=== PATIENT | male | born 1945 | race Caucasian/White ===

== ENCOUNTER → 2016-07-01 | Outpatient (CLI) | payer MEDICARE, BC | END | disposition home or self-care (01) | LOC: MW.CHUR 11:58 | PROVIDERS: ATTEND Urology | DX: N40.0 Benign prostatic hyperplasia without lower urinary tract symptoms (principal); R97.20 Elevated prostate specific antigen [PSA] | CPT/HCPCS: 36415; 84153 ==

== ENCOUNTER → 2016-07-14 | Outpatient (CLI) | payer MEDICARE, BC | LOC: MW.CHUR 08:00 | PROVIDERS: ATTEND Urology | DX: R97.20 Elevated prostate specific antigen [PSA] (principal); N52.9 Male erectile dysfunction, unspecified | CPT/HCPCS: G0463 ==

== ENCOUNTER 2017-03-28 07:22 | Day surgery (SDC) | payer MEDICARE, BC ==
[~2017-03-28 07:22] MED LIST: Lactated Ringers 1,000 ML IV SCH
--- NOTE | 2017-03-28 09:14 | PCM.PREANE ---
Preanesthetic Assessment - Anesthesia/Transfusion/Family Hx Anesthesia History: Prior Anesthesia Without Reaction Family History of Anesthesia Reaction: No Transfusion History: No Prior Transfusion(s) Intubation History: Unknown - Review of Systems General: No Symptoms Pulmonary: No Symptoms Cardiovascular: No Symptoms Gastrointestinal: Diarrhea Neurological: No Symptoms Other: Reports: None - Physical Assessment NPO Status Date: 03/27/17 NPO Status Time: 21:00 O2 Sat by Pulse Oximetry: 96 Respiratory Rate: 16 Vital Signs: Last Vital Signs Temp 36.4 C 03/28/17 07:44 Pulse 73 03/28/17 07:44 Resp 16 03/28/17 07:44 BP 152/95 H 03/28/17 07:44 Pulse Ox 96 03/28/17 07:44 Height: 1.8 m Weight: 91.172 kg ASA Class: 2 Mental Status: Alert & Oriented x3 Airway Class: Mallampati = 2 Dentition: Reports: Normal Dentition Thyro-Mental Finger Breadths: 2 Mouth Opening Finger Breadths: 3 ROM/Head Extension: Limited/Partial Lungs: Clear to Auscultation, Normal Respiratory Effort Cardiovascular: Regular Rate, Regular Rhythm - Allergies Allergies/Adverse Reactions: Allergies Allergy/AdvReac Type Severity Reaction Status Date / Time No Known Allergies Allergy Verified 02/25/14 13:44 - Blood Blood Available: No - Anesthesia Plan Pre-Op Medication Ordered: None - Acknowledgements Anesthesia Type Planned: MAC Pt an Appropriate Candidate for the Planned Anesthesia: Yes Alternatives and Risks of Anesthesia Discussed w Pt/Guardian: Yes Pt/Guardian Understands and Agrees with Anesthesia Plan: Yes PreAnesthesia Questionnaire HEENT History: Reports: Glaucoma Gastrointestinal History: Reports: Chronic Diarrhea Genitourinary History: Reports: BPH Musculoskeletal History: Reports: Arthritis, Other (See Below) Other Musculoskeletal History: degenerative joint disease Neurological History: Reports: None Endocrine/Metabolic History: Reports: None Oncologic (Cancer) History: Reports: Colon (colon resection 7 years ago) - Past Surgical History Head Surgeries/Procedures: Reports: None HEENT Surgical History: Reports: Cataract Surgery, Tonsillectomy GI Surgical History: Reports: Appendectomy, Colon, Colonoscopy (last one ;) Other GI Surgeries/Procedures: hx hemicolectomy Neurological Surgical History: Reports: C-Spine, Lumbar Spine Other Neurological Surgeries/Procedures: hx back surgery Musculoskeletal Surgical History: Reports: Knee Replacement (right), Other (See Below) Other Musculoskeletal Surgeries/Procedures:: hx surgery to left ankle & rt total knee replacement - SUBSTANCE USE Smoking Status *Q: Former Smoker Days Per Week of Alcohol Use: 1 Number of Drinks Per Day: 1 Total Drinks Per Week: 1 Recreational Drug Use History: No - HOME MEDS Home Medications: Home Meds Latanoprost [Xalatan 0.005% Ophth Soln] 1 drop EYEBOTH DAILY 03/23/17 [History] Loperamide HCl [Anti-Diarrheal] 2 tab PO BID 03/23/17 [History] - CURRENT (IN HOUSE) MEDS Current Meds: Current Medications Lactated Ringer's (Ringers, Lactated) 1,000 mls @ 125 mls/hr IV ASDIRECTED [facility] Last Admin: 03/28/17 07:46 Dose: 125 mls/hr
[2017-03-28] MEDS ORDERED: Propofol 200 MG/20 ML SDV ONE ×2 (10:18→10:34)
[2017-03-28] MEDS ORDERED: Lidocaine 2% 5 ML SDV ONE (10:18)
[2017-03-28] MEDS ORDERED: fentaNYL 100 MCG/2 ML SDV ONE (10:18)
[2017-03-28] MEDS ORDERED: Midazolam 1 MG/ML 2 ML SDV ONE (10:18)
--- NOTE | 2017-03-28 10:58 | PCM.OPNOTE ---
- General Post-Op/Procedure Note Date of Surgery/Procedure: 03/28/17 Operative Procedure(s): colonoscopy w bx Findings: see dict [id number] Pre Op Diagnosis: surveillence colonoscopy Post-Op Diagnosis: colon polyp Anesthesia Technique: Moderate Sedation Primary Surgeon: Sb Lino Pathology: 3 mm sessile polyp, bx, at distance 30cm when scope went in Complications: None Condition: Good
[2017-03-28 11:35] VITALS: BP 137/89
--- NOTE | 2017-03-28 12:06 | OR ---
SURGEON: Sb Lino MD DATE OF PROCEDURE: 03/28/2017 PREOPERATIVE DIAGNOSIS: Surveillance colonoscopy. POSTOPERATIVE DIAGNOSIS: Colon polyp. PROCEDURE PERFORMED: Colonoscopy with biopsy. FINDINGS: 1. The patient is easily sedated with WE[employer] and Diprivan. The patient is soundly snoring. 2. Bowel prep is average. Moderate amount of liquid stool. No bubbles. No semi-formed stool. 3. Colon is rather straight forward and anastomosis is arrived almost at the right groin as note the patient has colon cancer status post laparoscopic right hemicolectomy, so we do not expect to see the appendix or the ileocecal fold. We arrived to the anastomosis, which is in the right groin and which is just a little bit below the liver and then the mucosa examined. Upon scope pulling out, the patient has mild diverticulosis on the left colon. No signs or symptoms of diverticulitis, inflammation, stricture, ulceration, bleeding, none of those. The patient has a tiny polyp at distance 30 cm when the scope go in and was removed with biopsy forceps three times. Other than that, no mass, no growth, no inflammation, stricture, ulceration, bleeding, none of those. The patient does not have any hemorrhoid and the patient would benefit from a repeat colonoscopy in 3 years later or if clinically indicated otherwise or if the polyp pathology indicated otherwise. PROCEDURE IN DETAIL: The patient was taken to the endoscopy room. A time out was called, patient identified, and procedure identified. Diprivan was then administrated. Patient went from awake to sleep, hearing doctor talking or door closing is normal. Perineum inspection and digital examination were then performed. A well- lubricated colonoscope was gently inserted through the rectum, advanced past the rectosigmoid junction, the descending colon, splenic flexure, transverse colon, hepatic flexure, ascending colon, arrived to the cecum. Cecum was identified as dictated in the finding. Then the scope was carefully withdrawn while attention was paid to the mucosal surface for any abnormality. Air will be sucked out during the scope withdrawal. At the rectum, retroflexed to examine any rectal diseases, fistula or hemorrhoids. During mucosal examination, a 3mm sessile polyp was noted; picture taken and biopsy performed. Patient tolerated procedure well. There were no intraoperative complications, and Dr. Lino was present throughout the whole procedure. SANIA / JC /[id number] MTDD
== END 2017-03-28 11:30 | disposition home or self-care (01) ==
LOC: MW.SDS 07:22
PROVIDERS: ATTEND Surgery
DX: Z12.11 Encounter for screening for malignant neoplasm of colon (principal); M19.90 Unspecified osteoarthritis, unspecified site; N40.0 Benign prostatic hyperplasia without lower urinary tract symptoms; N52.9 Male erectile dysfunction, unspecified; M50.30 Other cervical disc degeneration, unspecified cervical region; K52.9 Noninfective gastroenteritis and colitis, unspecified; K63.5 Polyp of colon; D12.7 Benign neoplasm of rectosigmoid junction; Z85.038 Personal history of other malignant neoplasm of large intestine; Z79.899 Other long term (current) drug therapy; Z90.49 Acquired absence of other specified parts of digestive tract; Z90.89 Acquired absence of other organs; Z87.891 Personal history of nicotine dependence; Z98.890 Other specified postprocedural states; Z96.651 Presence of right artificial knee joint
CPT/HCPCS: 45380; 88305; J2250; J3010; J7120; J2704

== ENCOUNTER 2017-05-14 11:36 | Emergency (ER) | payer MEDICARE, BC ==
--- NOTE | 2017-05-14 12:06 | EDM.PDOC ---
ED HPI GENERAL MEDICAL PROBLEM - General Chief Complaint: Lower Extremity Injury/Pain Stated Complaint: FALL Time Seen by Provider: 05/14/17 11:37 Source of Information: Reports: Patient History Limitations: Reports: No Limitations - History of Present Illness INITIAL COMMENTS - FREE TEXT/NARRATIVE: HISTORY AND PHYSICAL: History of present illness: Patient is a 72-year-old male who presents to the emergency room with complaints of left hip pain post fall. He states he was walking on the ice when he slipped landing on his left hip and left elbow. He denies hitting his head or any loss of consciousness. Does not take any anticoagulants but does occasionally take an aspirin. Some soft tissue swelling noted to the left hip. He did walk in without difficulty. Denies any numbness or tingling to the lower extremities. Review of systems: As per history of present illness and below otherwise all systems reviewed and negative. Past medical history: As per history of present illness and as reviewed below otherwise noncontributory. Surgical history: As per history of present illness and as reviewed below otherwise noncontributory. Social history: No reported history of drug or alcohol abuse. Family history: As per history of present illness and as reviewed below otherwise noncontributory. Physical exam: HEENT: Atraumatic, normocephalic, pupils reactive, negative for conjunctival pallor or scleral icterus, mucous membranes moist, throat clear, neck supple, nontender, trachea midline. Lungs: Clear to auscultation, breath sounds equal bilaterally, chest nontender. Heart: S1S2, regular, negative for clicks, rubs, or JVD. Abdomen: Soft, nondistended, nontender. Negative for masses or hepatosplenomegaly. Negative for costovertebral tenderness. Pelvis: Stable nontender. Genitourinary: Deferred. Rectal: Deferred. C-Spine/Back: No pinpoint vertebral tenderness with palpation. Some muscular tenderness along the thoracic chest palp adjacent to mid-spine. Extremities: Moves all extremities per self. Tenderness to palpation of the left greater trochanteric area. Strong pedal pulses. Soft tissue swelling noted at area of discomfort. Skin intact, warm, dry. Left elbow has full range of motion and no tenderness with palpation. Neurovascular unremarkable. Neuro: Awake, alert, oriented. Cranial nerves II through XII unremarkable. Cerebellum unremarkable. Motor and sensory unremarkable throughout. Exam nonfocal. Due to the patient's intermittent aspirin use and age and will CT scan the patient's head and get an EKG. Had some thoracic pain with palpation (appears muscular), will get a CXR. Offered to x-ray the left elbow, patient declined. We 'll proceed with the x-ray of the left hip and pelvis along with the head CT. Head CT is normal with no acute findings. Chest x-ray shows no fracture, pneumonia or acute findings. X-ray of the hip and pelvis shows no convincing radiographic evidence of fracture or dislocation. I did talk with the patient about performing a CT of the pelvis/hip. He states he feels "fine right now". We did discuss that if he continues to have pain or worsening pain that he should follow-up with the orthopedic provider or return to the emergency room if unable to get in in a timely manner as a CT may be warranted. Offered the patient crutches to help with ambulation/nonweightbearing. Clines. Patient voices understanding of discharge instructions and agreeable to plan of care. He denies any further questions at this time. Diagnostics: CT head, xray pelvis/left hip Therapeutics: [] Impression: Hip injury Contusion Plan: 1. Rest, ice, elevate the affected extremity. These use Tylenol and/or ibuprofen as needed for pain management. 2. As we discussed please follow-up with orthopedics next week. Return to the ED as needed and as discussed. Definitive disposition and diagnosis as appropriate pending reevaluation and review of above. Onset: Today Duration: Minutes: Location: Reports: Pelvis Left Hip Pain Score (Numeric/FACES): 3 - Related Data Allergies Allergy/AdvReac Type Severity Reaction Status Date / Time No Known Allergies Allergy Verified 02/25/14 13:44 Home Meds: Home Meds Latanoprost [Xalatan 0.005% Ophth Soln] 1 drop EYEBOTH DAILY 03/23/17 [History] Loperamide HCl [Anti-Diarrheal] 2 tab PO BID 03/23/17 [History] Past Medical History HEENT History: Reports: Glaucoma Gastrointestinal History: Reports: Chronic Diarrhea Genitourinary History: Reports: BPH Musculoskeletal History: Reports: Arthritis, Other (See Below) Other Musculoskeletal History: degenerative joint disease Neurological History: Reports: None Endocrine/Metabolic History: Reports: None Oncologic (Cancer) History: Reports: Colon - Infectious Disease History Infectious Disease History: Reports: Measles - Past Surgical History Head Surgeries/Procedures: Reports: None HEENT Surgical History: Reports: Cataract Surgery, Tonsillectomy GI Surgical History: Reports: Appendectomy, Colon, Colonoscopy Other GI Surgeries/Procedures: hx hemicolectomy Neurological Surgical History: Reports: C-Spine, Lumbar Spine Other Neurological Surgeries/Procedures: hx back surgery Musculoskeletal Surgical History: Reports: Knee Replacement, Other (See Below) Other Musculoskeletal Surgeries/Procedures:: hx surgery to left ankle & rt total knee replacement Social & Family History - Family History Family Medical History: Noncontributory - Tobacco Use Smoking Status *Q: Never Smoker Years of Tobacco use: 30 Used Tobacco, but Quit: Yes Month Tobacco Last Used: quit smoking over 20 yrs ago Second Hand Smoke Exposure: No - Caffeine Use Caffeine Use: Reports: Coffee - Alcohol Use Days Per Week of Alcohol Use: 1 Number of Drinks Per Day: 1 Total Drinks Per Week: 1 - Recreational Drug Use Recreational Drug Use: No Drug Use in Last 12 Months: No Review of Systems - Review of Systems Review Of Systems: ROS reveals no pertinent complaints other than HPI. ED EXAM, GENERAL - Physical Exam Exam: See Below (See dictation) Course - Vital Signs Last Recorded V/S: Last Vital Signs Temp 96.4 F 05/14/17 11:40 Pulse 83 05/14/17 13:00 Resp 15 05/14/17 13:00 BP 101/60 05/14/17 13:00 Pulse Ox 94 L 05/14/17 13:00 - Orders/Labs/Meds Orders: Active Orders 24 hr Category Date Time Status EKG Documentation Completion [RC] STAT Care 05/14/17 12:52 Ordered Chest 1V Frontal [CR] Stat Exams 05/14/17 12:06 Taken Head wo Cont [CT] Stat Exams 05/14/17 11:59 Taken Hip Min 2V or 3V w Pelvis Lt [CR] Stat Exams 05/14/17 11:59 Taken Departure - Departure Time of Disposition: 13:35 Disposition: Home, Self-Care 01 Clinical Impression: Hip injury Qualifiers: Encounter type: initial encounter Laterality: left Qualified Code(s): S79.912A - Unspecified injury of left hip, initial encounter Contusion Qualifiers: Encounter type: initial encounter Contusion area: hip Laterality: left Qualified Code(s): S70.02XA - Contusion of left hip, initial encounter Fall Qualifiers: Encounter type: initial encounter Qualified Code(s): W19.XXXA - Unspecified fall, initial encounter - Discharge Information Instructions: Hip Pain Referrals: Mynor Lewis MD [Primary Care Provider] - Forms: ED Department Discharge Additional Instructions: My general discharge The following information is given to patients seen in the emergency department who are being discharged to home. This information is to outline your options for follow-up care. We provide all patients seen in our emergency department with a follow-up referral. The need for follow-up, as well as the timing and circumstances, are variable depending upon the specifics of your emergency department visit. If you don't have a primary care physician on staff, we will provide you with a referral. We always advise you to contact your personal physician following an emergency department visit to inform them of the circumstance of the visit and for follow-up with them and/or the need for any referrals to a consulting specialist. The emergency department will also refer you to a specialist when appropriate. This referral assures that you have the opportunity for follow-up care with a specialist. All of these measure are taken in an effort to provide you with optimal care, which includes your follow-up. Under all circumstances we always encourage you to contact your private physician who remains a resource for coordinating your care. When calling for follow-up care, please make the office aware that this follow-up is from your recent emergency room visit. If for any reason you are refused follow-up, please contact the [facility] at and asked to speak to the emergency department charge nurse. [facility] Professional [facility] [address] [place] [address], [address] [place] [address] 1. Rest, ice, elevate the affected extremity. These use Tylenol and/or ibuprofen as needed for pain management. 2. As we discussed please follow-up with orthopedics next week. If you continued to have pain, a CT of the hip/pelvis may be warranted Please Return to the ED as needed and as discussed. - My Orders Last 24 Hours: My Active Orders 05/14/17 11:59 Head wo Cont [CT] Stat Hip Min 2V or 3V w Pelvis Lt [CR] Stat 05/14/17 12:06 Chest 1V Frontal [CR] Stat 05/14/17 12:52 EKG Documentation Completion [RC] STAT - Assessment/Plan Last 24 Hours: My Active Orders 05/14/17 11:59 Head wo Cont [CT] Stat Hip Min 2V or 3V w Pelvis Lt [CR] Stat 05/14/17 12:06 Chest 1V Frontal [CR] Stat 05/14/17 12:52 EKG Documentation Completion [RC] STAT
[2017-05-14 13:00] VITALS: BP 101/60
--- NOTE | 2017-05-15 16:09 | CT ---
EXAM DATE: 05/14/17 PATIENT'S AGE: 72 Patient: BRANDON GONZALEZ Facility: [place], [place] Site . Site : 1945 Study: CT Head WO CONT [id number]/28/2018 12:22:55 PM Ordering Physician: Doctor Rivera Final Report: INDICATION: Fell on ice, hit head. TECHNIQUE: Noncontrast axial scans from skull base to vertex with multiplanar reconstructions. FINDINGS: There is no noncontrast CT evidence of acute intracranial hemorrhage, midline shift, nor mass effect. No extra-axial fluid collection is identified. Mild ventricular enlargement, appearing appropriate to the mild degree 8 of cortical cerebral atrophy. There is no skull fracture. No acute calvarial abnormality identified. The visualized paranasal sinuses are clear. Unremarkable orbits. IMPRESSION: No acute intracranial abnormality identified. 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 Please note that all CT scans at this facility use dose modulation, iterative reconstruction, and/or weight-based dosing when appropriate to reduce radiation dose to as low as reasonably achievable. Dictated by Emre Head MD @ May 14 2017 12:37PM (Electronic Signature) Report Signed by Proxy. [facility] CORNELL MEDICAL CENTERBrandon
--- NOTE | 2017-05-15 16:10 | CR ---
EXAM DATE: 05/14/17 PATIENT'S AGE: 72 Patient: BRANDON GONZALEZ Facility: [place], [place] Site . Site : 1945 Study: XRay Chest [id number]/2018 12:33:43 PM Ordering Physician: Doctor Rivera Final Report: INDICATION: Pain, short of breath. TECHNIQUE: A single upright PA view. FINDINGS: Heart size normal. Tortuous thoracic aorta. There is a faint nodule overlying the right mid chest, this could represent a nipple shadow, but pulmonary nodule is not excluded. This measures just over 1 cm in maximum dimension. Otherwise lungs are clear. Consider nonemergent noncontrast CT examination of chest for further evaluation. Dictated by Emre Head MD @ May 14 2017 12:53PM (Electronic Signature) Report Signed by Proxy. FRIEDA
--- NOTE | 2017-05-15 16:11 | CR ---
EXAM DATE: 05/14/17 PATIENT'S AGE: 72 Patient: BRANDON GONZALEZ Facility: [place], [place] Site . Site : 1945 Study: XRay Hip Left [id number]/28/2018 12:34:16 PM Ordering Physician: Doctor Rivera Final Report: INDICATION: Fall. TECHNIQUE: Three views. FINDINGS: There is no convincing radiographic evidence of fracture/dislocation. If signs/ symptoms continue and if clinically indicated, consider CT examination. Moderate degenerative narrowing of the right hip joint with associated osteophytes is noted on the AP pelvis view. Dictated by Emre Head MD @ May 14 2017 12:50PM (Electronic Signature) Report Signed by Proxy. FRIEDA
== END 2017-05-14 13:43 | disposition home or self-care (01) ==
LOC: MW.ED 11:36
DX: S70.02XA Contusion of left hip, initial encounter (principal); Z79.899 Other long term (current) drug therapy; Z87.891 Personal history of nicotine dependence; W01.0XXA Fall on same level from slipping, tripping and stumbling without subsequent striking against object, initial encounter
CPT/HCPCS: 70450; 70450-26; 71045; 71045-26; 73502-26-LT; 73502-LT; 93005; 99283

== ENCOUNTER 2017-05-23 08:46 | Observation (INO) | payer MEDICARE, BC ==
[2017-05-23] MEDS ORDERED: Sodium Chloride 0.9% 10 ML Syringe FLUSH PRN (09:05)
[2017-05-23] MEDS ORDERED: Sodium Chloride 0.9% 2.5 ML Syringe FLUSH PRN ×2 (09:05→11:31)
--- NOTE | 2017-05-23 09:46 | US ---
ULTRASOUND EXAMINATION OF the left lower extremity WITH DOPPLER HISTORY: Pain FINDINGS: Examination of the left leg was performed from the groin to the calf region. All visualized segments including common femoral, proximal greater saphenous, superficial femoral, popliteal and calf veins appear patent with good compressibility and augmentation. There is no evidence of a deep vein thromb osis. Mild subcutaneous edema noted within the calf. IMPRESSION: No evidence of a DVT.
--- NOTE | 2017-05-23 09:47 | CR ---
EXAMINATION: Left femur HISTORY: Fall COMPARISON: None TECHNIQUE: 2 views FINDINGS/IMPRESSION: There is no acute osseous abnormality, dislocation, or fracture. Bone mineraliza tion and Hip joint space appears preserved. Mild prepatellar soft tissue thickening without an underl patrica joint effusion.
--- NOTE | 2017-05-23 10:33 | EDM.PDOC ---
ED HPI GENERAL MEDICAL PROBLEM - General Chief Complaint: Lower Extremity Injury/Pain Stated Complaint: LEFT HIP PAIN Time Seen by Provider: 05/23/17 08:50 Source of Information: Reports: Family History Limitations: Reports: No Limitations - History of Present Illness INITIAL COMMENTS - FREE TEXT/NARRATIVE: History of present illness: []Patient fell on the ice a week ago and landed on his left posterior hip. He was seen in the ER and x-rays were initially negative. Followed up and had a CT of his hip which is also negative for fracture but showed severe DJD of the hip. Patient continues to have hip and thigh pain on his left with pain, bruising and swelling of his left lower extremity. Denies any other pain, fevers , shortness of breath Review of systems: As per history of present illness and below otherwise all systems reviewed and negative. Past medical history: As per history of present illness and as reviewed below otherwise noncontributory. Surgical history: As per history of present illness and as reviewed below otherwise noncontributory. Social history: No reported history of drug or alcohol abuse. Family history: As per history of present illness and as reviewed below otherwise noncontributory. Physical exam: General: Well developed, well nourished in NAD HEENT: Atraumatic, normocephalic, pupils reactive, negative for conjunctival pallor or scleral icterus, mucous membranes moist, throat clear, neck supple, nontender, trachea midline. Lungs: Clear to auscultation, breath sounds equal bilaterally, chest nontender. Heart: S1S2, regular, negative for clicks, rubs, or JVD. Abdomen: Soft, nondistended, nontender. Negative for masses or hepatosplenomegaly. Negative for costovertebral tenderness. Pelvis: Stable nontender. Genitourinary: Deferred. Rectal: Deferred. Extremities: Left lower extremity visibly larger than the right with pitting edema and ecchymosis from the medial thigh to the medial ankle he does have tenderness to palpation throughout his lower extremity is not tense and no pain with passive extension or flexion, negative for cords or calf pain. Neurovascular unremarkable. Neuro: Awake, alert, oriented. Cranial nerves II through XII unremarkable. Cerebellum unremarkable. Motor and sensory unremarkable throughout. Exam nonfocal. Diagnostics: []Ultrasound negative for DVT, femur x-ray negative for fracture reviewed x- rays and CT of the left hip which are negative for fracture. H&H is 7.9/25. Patient does have a history of thalassemia and states he is always anemic. Patient's last H&H on March 2016 was 12.2/40.7 Therapeutics: []Patient declined pain meds and blood has been ordered. Impression: []Left lower extremity contusion with edema Plan: []Hospitalist consulted at 10:25 will admit for observation and for a blood transfusion. Definitive disposition and diagnosis as appropriate pending reevaluation and review of above. Left leg Pain Score (Numeric/FACES): 2 - Related Data Allergies Allergy/AdvReac Type Severity Reaction Status Date / Time No Known Allergies Allergy Verified 05/23/17 09:02 Home Meds: Home Meds Latanoprost [Xalatan 0.005% Ophth Soln] 1 drop EYEBOTH DAILY 03/23/17 [History] Loperamide HCl [Anti-Diarrheal] 2 tab PO BID 03/23/17 [History] Past Medical History HEENT History: Reports: Glaucoma Gastrointestinal History: Reports: Chronic Diarrhea Genitourinary History: Reports: BPH Musculoskeletal History: Reports: Arthritis, Other (See Below) Other Musculoskeletal History: degenerative joint disease Neurological History: Reports: None Endocrine/Metabolic History: Reports: None Oncologic (Cancer) History: Reports: Colon - Infectious Disease History Infectious Disease History: Reports: Measles - Past Surgical History Head Surgeries/Procedures: Reports: None HEENT Surgical History: Reports: Cataract Surgery, Tonsillectomy GI Surgical History: Reports: Appendectomy, Cholecystectomy, Colon, Colonoscopy Other GI Surgeries/Procedures: hx hemicolectomy Neurological Surgical History: Reports: C-Spine, Lumbar Spine Other Neurological Surgeries/Procedures: hx back surgery Musculoskeletal Surgical History: Reports: Knee Replacement, Other (See Below) Other Musculoskeletal Surgeries/Procedures:: hx surgery to left ankle & rt total knee replacement Social & Family History - Family History Family Medical History: Noncontributory - Tobacco Use Smoking Status *Q: Former Smoker Years of Tobacco use: 30 Used Tobacco, but Quit: Yes Month Tobacco Last Used: 20 years ago Second Hand Smoke Exposure: No - Caffeine Use Caffeine Use: Reports: None - Alcohol Use Days Per Week of Alcohol Use: 1 Number of Drinks Per Day: 1 Total Drinks Per Week: 1 - Recreational Drug Use Recreational Drug Use: No Drug Use in Last 12 Months: No Review of Systems - Review of Systems Review Of Systems: See Below (See history of present illness) ED EXAM, GENERAL - Physical Exam Exam: See Below (See history of present illness) Course - Vital Signs Last Recorded V/S: Last Vital Signs Temp 98.5 F 05/23/17 11:31 Pulse 85 05/23/17 11:31 Resp 18 05/23/17 11:31 BP 97/69 05/23/17 11:31 Pulse Ox 98 05/23/17 11:31 - Orders/Labs/Meds Orders: Active Orders 24 hr Category Date Time Status Patient Status [ADT] Stat ADT 05/23/17 11:07 Active Transfuse Red Blood Cells [COMM] Routine Oth 05/23/17 11:04 Ordered Medication Orders Acetaminophen (Tylenol) 650 mg PO Q4H PRN PRN Reason: Pain Loperamide HCl (Imodium) 2 mg PO BID NAVI Ondansetron HCl (Zofran) 4 mg IVPUSH Q4H PRN PRN Reason: Nausea Pantoprazole Sodium (Protonix Iv) 40 mg IVPUSH Q12H NAVI Xalatan Opthalmic 0 each EYEBOTH DAILY NAVI Sodium Chloride (Saline Flush) 2.5 ml FLUSH ASDIRECTED PRN PRN Reason: Keep Vein Open Tramadol HCl (Ultram) 50 mg PO Q4H PRN PRN Reason: Pain Labs: Laboratory Tests 05/23/17 05/23/17 05/23/17 Range/Units 09:58 09:58 09:58 WBC 9.74 (4.0-11.0) K/uL RBC 4.01 L (4.50-5.90) M/uL Hgb 7.9 L (13.0-17.0) g/dL Hct 25.3 L (38.0-50.0) % MCV 63.1 L (80.0-98.0) fL MCH 19.7 L (27.0-32.0) pg MCHC 31.2 (31.0-37.0) g/dL RDW Std Deviation 35.9 (28.0-62.0) fl RDW Coeff of [place] 17 H (11.0-15.0) % Plt Count 380 (150-400) K/uL MPV 9.60 (7.40-12.00) fL Neut % (Auto) 71.4 (48.0-80.0) % Lymph % (Auto) 17.1 (16.0-40.0) % [place] % (Auto) 8.7 (0.0-15.0) % Eos % (Auto) 2.6 (0.0-7.0) % Baso % (Auto) 0.2 (0.0-1.5) % Neut # (Auto) 7.0 H (1.4-5.7) K/uL Lymph # (Auto) 1.7 (0.6-2.4) K/uL [place] # (Auto) 0.9 H (0.0-0.8) K/uL Eos # (Auto) 0.3 (0.0-0.7) K/uL Baso # (Auto) 0.0 (0.0-0.1) K/uL Nucleated RBC % 0.0 /100WBC Nucleated RBCs # 0 K/uL INR 1.03 APTT 27.3 (18.6-31.3) SEC Sodium 137 (136-146) mmol/L Potassium 4.2 (3.5-5.1) mmol/L Chloride 104 (98-110) mmol/L Carbon Dioxide 29 (21-31) mmol/L BUN 17 (6.0-23.0) mg/dL Creatinine 0.9 (0.6-1.5) mg/dL Est Cr Clr Drug Dosing 76.90 mL/min Estimated GFR (MDRD) > 60.0 ml/min Glucose 101 (60-110) mg/dL Calcium 8.5 L (8.8-10.8) mg/dL Total Bilirubin 2.0 H (0.1-1.5) mg/dL AST 23 (5-40) IU/L ALT 13 (8-54) IU/L Alkaline Phosphatase 69 (40-150) Total Protein 6.3 (6.0-8.0) g/dL Albumin 3.5 (3.4-4.8) g/dL Globulin 2.8 (2.0-3.5) g/dL Albumin/Globulin Ratio 1.3 (1.3-2.8) Meds: Medications Generic Name Dose Route Start Last Admin Trade Name Freq PRN Reason Stop Dose Admin Acetaminophen 650 mg 05/23/17 11:31 Tylenol PO Q4H PRN Pain Loperamide HCl 2 mg 05/23/17 21:00 Imodium PO BID NAVI Ondansetron HCl 4 mg 05/23/17 11:31 Zofran IVPUSH Q4H PRN Nausea Pantoprazole Sodium 40 mg 05/23/17 11:45 Protonix Iv IVPUSH Q12H NAVI Xalatan Opthalmic 0 each 05/24/17 09:00 EYEBOTH DAILY NAVI Sodium Chloride 2.5 ml 05/23/17 11:31 Saline Flush FLUSH ASDIRECTED PRN Keep Vein Open Tramadol HCl 50 mg 05/23/17 11:39 Ultram PO Q4H PRN Pain Discontinued Medications Generic Name Dose Route Start Last Admin Trade Name Freq PRN Reason Stop Dose Admin Sodium Chloride 10 ml 05/23/17 09:05 Saline Flush FLUSH ASDIRECTED PRN Keep Vein Open Sodium Chloride 2.5 ml 05/23/17 09:05 Saline Flush FLUSH ASDIRECTED PRN Keep Vein Open Departure - Departure Time of Disposition: 12:44 Disposition: Refer to Observation Condition: Good Clinical Impression: Anemia - Discharge Information - My Orders Last 24 Hours: My Active Orders 05/23/17 11:04 Transfuse Red Blood Cells [COMM] Routine 05/23/17 11:07 Patient Status [ADT] Stat - Assessment/Plan Last 24 Hours: My Active Orders 05/23/17 11:04 Transfuse Red Blood Cells [COMM] Routine 05/23/17 11:07 Patient Status [ADT] Stat
[2017-05-23 10:34] LABS: CHLORIDE,CL 104 mmol/L (98-110); SODIUM,NA 137 mmol/L (136-146)
[2017-05-23] MEDS ORDERED: Ondansetron 4 MG/2 ML SDV IVPUSH PRN (11:31)
[2017-05-23] MEDS ORDERED: Acetaminophen 325 MG Tab PO PRN (11:31)
--- NOTE | 2017-05-23 11:31 | PCM.HP ---
H&P History of Present Illness - General Date of Service: 05/23/17 Admit Problem/Dx: Anemia, L leg hematoma Source of Information: Patient History Limitations: Reports: No Limitations - History of Present Illness Initial Comments - Free Text/Narative: THis 72 year old male with pmh of beta thalassemia minor and colon ca with colectomy 7-8 years ago presents to the ED after he fell 05/14. He is reporting continued L hip/leg pain with bruising to his L hip and extending distally to foot. They do report the swelling has improved. But he is worried about the pain. Xrays from initial visit to ED were negative for fractures as well as a CT of hip. He denies shortness of breath, chest pain, fatigue or bleeding else where. He reports taking Ibuprofen 2-3 times a day for pain. He denies anticoagulation therapy. He is able to ambulate on his leg, with some pain. He denies parathesias to leg and again reports the swelling and circumference of leg have improved. He denies black or bloody BMS, no hematemesis or abdominal pain. In the ED anemia, hg 7.9 noted. BMP WNL. INR 1.03. Doppler of L leg negative for DVT and Femur xray neg again for acute fracture. He will be admitted for pain control and RBC transfusion due to anemia. Left leg Pain Score (Numeric/FACES): 2 - Related Data Allergies/Adverse Reactions: Allergies Allergy/AdvReac Type Severity Reaction Status Date / Time No Known Allergies Allergy Verified 05/23/17 09:02 Home Medications: Home Meds Latanoprost [Xalatan 0.005% Ophth Soln] 1 drop EYEBOTH DAILY 03/23/17 [History] Loperamide HCl [Anti-Diarrheal] 2 tab PO BID 03/23/17 [History] Past Medical History HEENT History: Reports: Glaucoma Cardiovascular History: Reports: Hypertension (some hx of but not treated currenty). Denies: Afib, Blood Clots/VTE/DVT, Heart Failure, High Cholesterol, [place] Respiratory History: Reports: None. Denies: Asthma, COPD Gastrointestinal History: Reports: Chronic Diarrhea (post colectomy). Denies: GERD Genitourinary History: Reports: BPH. Denies: Chronic Renal Insuffiency Musculoskeletal History: Reports: Arthritis, Other (See Below) Other Musculoskeletal History: degenerative joint disease Neurological History: Reports: None. Denies: CVA, TIA Endocrine/Metabolic History: Reports: None. Denies: Diabetes, Type II, Hypothyroidism Hematologic History: Reports: Anemia (beta thalassemia minor) Oncologic (Cancer) History: Reports: Colon - Infectious Disease History Infectious Disease History: Reports: Measles - Past Surgical History Head Surgeries/Procedures: Reports: None HEENT Surgical History: Reports: Cataract Surgery, Tonsillectomy GI Surgical History: Reports: Appendectomy, Cholecystectomy, Colon, Colonoscopy Other GI Surgeries/Procedures: hx hemicolectomy Neurological Surgical History: Reports: C-Spine, Lumbar Spine Other Neurological Surgeries/Procedures: hx back surgery Musculoskeletal Surgical History: Reports: Knee Replacement, Other (See Below) Other Musculoskeletal Surgeries/Procedures:: hx surgery to left ankle & rt total knee replacement Social & Family History - Family History Family Medical History: Noncontributory - Tobacco Use Smoking Status *Q: Former Smoker Years of Tobacco use: 30 Used Tobacco, but Quit: Yes Month Tobacco Last Used: 20 years ago Second Hand Smoke Exposure: No - Caffeine Use Caffeine Use: Reports: None - Alcohol Use Alcohol Use History: No Days Per Week of Alcohol Use: 1 Number of Drinks Per Day: 1 Total Drinks Per Week: 1 - Recreational Drug Use Recreational Drug Use: No Drug Use in Last 12 Months: No - Living Situation & Occupation Living situation: Reports: Occupation: Retired H&P Review of Systems - Review of Systems: Review Of Systems: See Below General: Reports: No Symptoms. Denies: Fever, Chills, Malaise, Weakness, Fatigue HEENT: Reports: No Symptoms. Denies: Headaches, Sinus Congestion, Sore Throat Pulmonary: Reports: No Symptoms. Denies: Shortness of Breath, Cough, Sputum Cardiovascular: Reports: Edema (L leg). Denies: Chest Pain, Palpitations, Dyspnea on Exertion, Lightheadedness, Syncope Gastrointestinal: Reports: No Symptoms. Denies: Abdominal Pain, Black Stool, Bloody Stool, Nausea, Vomiting Genitourinary: Reports: No Symptoms. Denies: Dysuria, Frequency, Burning Musculoskeletal: Reports: No Symptoms Skin: Reports: No Symptoms Psychiatric: Reports: No Symptoms. Denies: Confusion Neurological: Reports: No Symptoms. Denies: Confusion Immunologic: Reports: No Symptoms Exam - Exam Exam: See Below - Vital Signs Vital Signs: Last Vital Signs Temp 98.1 F 02/06/18 09:13 Pulse 72 05/23/17 10:26 Resp 16 05/23/17 10:26 BP 128/82 05/23/17 10:26 Pulse Ox 96 05/23/17 10:26 Weight: 99 kg - Exam General: Alert, Oriented, Cooperative HEENT: PERRLA, Hearing Intact, Mucosa Moist & [place], Nares Patent, Normal Nasal Septum, Posterior Pharynx Clear, Conjunctiva Clear, EOMI, EACs Clear, TMs Clear Neck: Supple, Trachea Midline, 2 Lungs: Clear to Auscultation, Normal Respiratory Effort Cardiovascular: Regular Rate, Regular Rhythm GI/Abdominal Exam: Normal Bowel Sounds, Soft, Non-Tender, No Organomegaly, No Distention, No Abnormal Bruit, No Mass, Pelvis Stable Back Exam: Normal Inspection, Full Range of Motion Extremities: Normal Range of Motion, Pedal Edema (+1 pitting edema to foot, +2- 3 edema entire leg.) Peripheral Pulses: 2+: Posterior Tibial (L), Posterior Tibial (R), Dorsalis Pedis (L), Dorsalis Pedis (R) Skin: Ecchymosis (bruising noted from low back, buttock and L hip extending down to L foot, all phases of healing. Patient and report edema is better and bruising has improved as well. ) Neurological: Normal Gait Neuro Extensive - Mental Status: Alert, Oriented x3, Normal Mood/Affect, Normal Cognition Neuro Extensive - Motor, Sensory, Reflexes: CN II-XII Intact, Normal Gait Psychiatric: Alert, Normal Affect, Normal Mood - Patient Data Result Diagrams: 05/23/17 09:58 05/23/17 09:58 *Q Meaningful Use (ADM) - VTE *Q VTE Criteria *Q: - Stroke *Q Stroke Criteria *Q: - AMI *Q AMI Criteria *Q: - Problem List (1) Anemia SNOMED Code(s): 252138187 ICD Code: D64.9 - ANEMIA, UNSPECIFIED Status: Acute Current Visit: Yes Qualifiers: Anemia type: other cause Other causes of anemia: other cause, not classified Qualified Code(s): D64.89 - Other specified anemias (2) Leg hematoma SNOMED Code(s): 477203479 ICD Code: S80.10XA - CONTUSION OF UNSPECIFIED LOWER LEG, INITIAL ENCOUNTER Status: Acute Current Visit: Yes Qualifiers: Encounter type: subsequent encounter Laterality: left Qualified Code(s): S80.12XD - Contusion of left lower leg, subsequent encounter (3) Fall SNOMED Code(s): 8852234 ICD Code: W19.XXXA - UNSPECIFIED FALL, INITIAL ENCOUNTER Status: Acute Current Visit: No Qualifiers: Encounter type: subsequent encounter Qualified Code(s): W19.XXXD - Unspecified fall, subsequent encounter (4) Thalassemia minor SNOMED Code(s): 77827299 ICD Code: D56.3 - THALASSEMIA MINOR Status: Chronic Current Visit: Yes (5) History of colon cancer SNOMED Code(s): 266913288 ICD Code: Z85.038 - PERSONAL HISTORY OF MALIGNANT NEOPLASM OF LARGE INTESTINE Status: Chronic Current Visit: Yes Problem List Initiated/Reviewed/Updated: Yes Assessment/Plan Comment:: This 72 year old male admitted due to pain in L leg from hematoma noted to have new anemia 1. L leg hematoma: Keep elevated and monitor neuro checks. 2. Anemia: Likely secondary to bleeding in L leg. Repeat L Hip CT and abd/ pelvis to evaluate for bleeding/hematoma. Administer 2 units PRBCs and recheck HH this evening. Will add hemoccult due to increase in Ibuprofen intake. and cover with protonix IV BID. 3. Hx colon ca and chronic diarrhea: Stable no blood noted. Continue Loperamide daily per home dosing. VTE: SCD to R leg only. NO pharmacologic due to large leg hematoma DIspo: 1-2 days pending
[2017-05-23] MEDS ORDERED: traMADol 50 MG Tab PO PRN (11:39)
--- NOTE | 2017-05-23 13:05 | CT ---
EXAMINATION: CT of the left hip HISTORY: Hematoma COMPARISON: 05/18/2017 TECHNIQUE: Axial CT images obtained through the left hip without contrast. Coronal and sagittal recon structions obtained. FINDINGS: Again noted is a hematoma within the left gluteal region measuring approximately 8 x 5 cm i n the axial dimension, not significantly changed. There is also a second hematoma overlying the vast us lateralis musculature measuring roughly 8 x 3 cm in the axial plane. There is moderate overlying s oft tissue edema also noted. No definite fracture or acute osseous abnormality. The left hip joint sp aces preserved. Bone mineralization is normal. Please see CT abdomen and pelvis for intrapelvic findi ngs. IMPRESSION: 1. Stable hematoma within the left gluteal region small hematoma along the left lateral thigh.
[2017-05-23] MEDS: Pantoprazole 40 MG Vial IVPUSH SCH (13:15)
--- NOTE | 2017-05-23 13:16 | CT ---
CT of the abdomen and pelvis without contrast. HISTORY: Pain TECHNIQUE: Axial CT images were obtained of the abdomen and pelvis without contrast. Coronal and sagi ttal reconstructions obtained. FINDINGS: The lung bases are clear, no pleural effusion. Several small cysts noted within the liver. Spleen, right adrenal gland, and pancreas appear unremark able for noncontrast examination. Mild nodular thickening of the left adrenal gland. Cholecystectomy. There is no bulky retroperitoneal lymphadenopathy. No abdominal ascites. Small renal cortical cysts are noted. Small calcification within the cortex of the right kidney. No e vidence of renal calculi. The large and small bowel are normal in caliber without evidence of obstruction. Anastomosis sutures noted within the right hemicolon. There is no bulky pelvic lymphadenopathy. No free fluid. No free ai r. The urinary bladder appears normal. Moderate severe prostatomegaly. Left gluteal hematoma noted as described on the CT hip. Moderate degenerative changes noted within the thoracolumbar spine without acute findings. Moderate d egenerative changes also noted within the right hip. IMPRESSION: 1. No acute findings within the abdomen or pelvis. 2. Left gluteal hematoma. 3. Moderate to severe prostatomegaly.
[2017-05-23] MEDS: Loperamide 2 MG Cap PO SCH (21:51)
[2017-05-23] MEDS ORDERED: Temazepam 15 MG Cap PO PRN (22:58)
[2017-05-24] MEDS: Pantoprazole 40 MG Vial IVPUSH SCH (00:19)
[2017-05-24 05:56] LABS: CHLORIDE,CL 104 mmol/L (98-110); SODIUM,NA 137 mmol/L (136-146)
[2017-05-24] MEDS ORDERED: LATANOPROST EYEBOTH SCH (09:00)
[2017-05-24] MEDS: Loperamide 2 MG Cap PO SCH (09:42)
[2017-05-24 09:44] VITALS: BP 117/67
--- NOTE | 2017-05-24 10:18 | PCM.DCSUM1 ---
Discharge Summary - Hospital Course Brief History: THis 72 year old male with pmh of beta thalassemia minor and colon ca with colectomy 7-8 years ago presents to the ED after he fell 05/14. He is reporting continued L hip/leg pain with bruising to his L hip and extending distally to foot. They do report the swelling has improved. But he is worried about the pain. Xrays from initial visit to ED were negative for fractures as well as a CT of hip. He denies shortness of breath, chest pain, fatigue or bleeding else where. He reports taking Ibuprofen 2-3 times a day for pain. He denies anticoagulation therapy. He is able to ambulate on his leg, with some pain. He denies parathesias to leg and again reports the swelling and circumference of leg have improved. He denies black or bloody BMS, no hematemesis or abdominal pain. In the ED anemia, hg 7.9 noted. BMP WNL. INR 1.03. Doppler of L leg negative for DVT and Femur xray neg again for acute fracture. He will be admitted for pain control and RBC transfusion due to anemia. - Discharge Data Discharge Date: 05/24/17 Discharge Disposition: Home, Self-Care 01 Condition: Good - Discharge Diagnosis/Problem(s) (1) Anemia SNOMED Code(s): 683991807 ICD Code: D64.9 - ANEMIA, UNSPECIFIED Status: Acute Qualifiers: Anemia type: other cause Other causes of anemia: other cause, not classified Qualified Code(s): D64.89 - Other specified anemias (2) Leg hematoma SNOMED Code(s): 241320801 ICD Code: S80.10XA - CONTUSION OF UNSPECIFIED LOWER LEG, INITIAL ENCOUNTER Status: Acute Qualifiers: Encounter type: subsequent encounter Laterality: left Qualified Code(s): S80.12XD - Contusion of left lower leg, subsequent encounter (3) Fall SNOMED Code(s): 5169943 ICD Code: W19.XXXA - UNSPECIFIED FALL, INITIAL ENCOUNTER Status: Acute Qualifiers: Encounter type: subsequent encounter Qualified Code(s): W19.XXXD - Unspecified fall, subsequent encounter (4) Thalassemia minor SNOMED Code(s): 18505925 ICD Code: D56.3 - THALASSEMIA MINOR Status: Chronic (5) History of colon cancer SNOMED Code(s): 984803922 ICD Code: Z85.038 - PERSONAL HISTORY OF MALIGNANT NEOPLASM OF LARGE INTESTINE Status: Chronic - Patient Instructions Diet: Regular Diet as Tolerated Activity: Elevate Extremity (when resting keep L leg elevated.), No Strenuous Activities, Rest and Relax Today Driving: Do Not Drive Showering/Bathing: May Shower Notify Provider of: Fever, Increased Pain, Swelling and Redness, Drainage, Nausea and/or Vomiting - Discharge Plan Prescriptions/Med Rec: traMADol [Ultram] 50 mg PO Q6H PRN #15 tablet PRN Reason: Pain Home Medications: Home Meds Latanoprost [Xalatan 0.005% Ophth Soln] 1 drop EYEBOTH DAILY 03/23/17 [History] Loperamide HCl [Anti-Diarrheal] 2 tab PO BID 03/23/17 [History] traMADol [Ultram] 50 mg PO Q6H PRN #15 tablet 05/24/17 [Rx] Patient Handouts: Anemia, Nonspecific, Tramadol tablets Referrals: [facility] [Outside] Mynor Lewis MD [Primary Care Provider] - 06/02/17 12:30 pm - Discharge Summary/Plan Comment DC Time >30 min.: No Discharge Summary/Plan Comment: Discharge Diagnoses: L gluteal and thigh hematoma Anemia Quintin was admitted and monitor overnight. he was transfused 2 units PRBCs due to anemia of 7.9. This likely occurred due to large hematoma in L gluteus and L thigh. He has no complaints of GI bleed such as black or bloody stools and no hematemesis. Hgb 9.4 last evening post transfusion and 9.3 this morning. He is stable and able to be discharged home. Tramadol helped with pain and he will be given prescription for this encouraged not to use NSAIDs until hematoma improves. I did speak with Dr Lewis regarding admission and anemia. He will see patient next week for follow up. Quintin encouraged to return to ED or clinic if concerns should arise. - General Info Date of Service: 05/24/17 Admission Dx/Problem (Free Text: Anemia, L leg hematoma Subjective Update: Doing really well this morning. Denies chest pain or SOB. Leg pain is much better and he was able to sleep with Tramadol. no dyspnea. Functional Status: Reports: Pain Controlled, Tolerating Diet, Ambulating, Urinating - Review of Systems HEENT: Reports: No Symptoms Pulmonary: Reports: No Symptoms. Denies: Shortness of Breath Cardiovascular: Reports: No Symptoms. Denies: Chest Pain Gastrointestinal: Reports: No Symptoms. Denies: Abdominal Pain, Nausea, Vomiting Genitourinary: Reports: No Symptoms. Denies: Dysuria, Frequency, Burning Musculoskeletal: Reports: Leg Pain (L lateral thigh is main pain region, but overall improved.) Skin: Reports: No Symptoms Neurological: Reports: No Symptoms Psychiatric: Reports: No Symptoms - Patient Data Vitals - Most Recent: Last Vital Signs Temp 98.8 F 05/24/17 08:00 Pulse 94 05/24/17 08:00 Resp 16 05/24/17 08:00 BP 117/67 05/24/17 08:00 Pulse Ox 96 05/24/17 08:00 Weight - Most Recent: 99 kg I&O - Last 24 hours: Intake & Output 05/23/17 05/24/17 05/24/17 22:59 06:59 14:59 Intake Total 1124 840 Output Total 390 975 Balance 734 -135 Lab Results - Last 24 hrs: Laboratory Results - last 24 hr 05/23/17 05/23/17 05/24/17 Range/Units 12:00 22:50 04:56 WBC 11.45 H (4.0-11.0) K/uL RBC 4.42 L (4.50-5.90) M/uL Hgb 9.4 L 9.3 L (13.0-17.0) g/dL Hct 28.7 L 29.3 L (38.0-50.0) % MCV 66.3 L (80.0-98.0) fL MCH 21.0 L (27.0-32.0) pg MCHC 31.7 (31.0-37.0) g/dL RDW Std Deviation 46.9 (28.0-62.0) fl RDW Coeff of [place] 21 H (11.0-15.0) % Plt Count 380 (150-400) K/uL MPV 10.20 (7.40-12.00) fL Neut % (Auto) 67.2 (48.0-80.0) % Lymph % (Auto) 20.8 (16.0-40.0) % Door % (Auto) 9.3 (0.0-15.0) % Eos % (Auto) 2.4 (0.0-7.0) % Baso % (Auto) 0.3 (0.0-1.5) % Neut # (Auto) 7.7 H (1.4-5.7) K/uL Lymph # (Auto) 2.4 (0.6-2.4) K/uL Door # (Auto) 1.1 H (0.0-0.8) K/uL Eos # (Auto) 0.3 (0.0-0.7) K/uL Baso # (Auto) 0.0 (0.0-0.1) K/uL Nucleated RBC % 0.0 /100WBC Nucleated RBCs # 0 K/uL Sodium (136-146) mmol/L Potassium (3.5-5.1) mmol/L Chloride (98-110) mmol/L Carbon Dioxide (21-31) mmol/L BUN (6.0-23.0) mg/dL Creatinine (0.6-1.5) mg/dL Est Cr Clr Drug Dosing mL/min Estimated GFR (MDRD) ml/min Glucose (60-110) mg/dL Calcium (8.8-10.8) mg/dL Blood Type O POSITIVE Antibody Screen NEGATIVE Crossmatch See Detail 05/24/17 Range/Units 04:56 WBC (4.0-11.0) K/uL RBC (4.50-5.90) M/uL Hgb (13.0-17.0) g/dL Hct (38.0-50.0) % MCV (80.0-98.0) fL MCH (27.0-32.0) pg MCHC (31.0-37.0) g/dL RDW Std Deviation (28.0-62.0) fl RDW Coeff of [place] (11.0-15.0) % Plt Count (150-400) K/uL MPV (7.40-12.00) fL Neut % (Auto) (48.0-80.0) % Lymph % (Auto) (16.0-40.0) % Door % (Auto) (0.0-15.0) % Eos % (Auto) (0.0-7.0) % Baso % (Auto) (0.0-1.5) % Neut # (Auto) (1.4-5.7) K/uL Lymph # (Auto) (0.6-2.4) K/uL Door # (Auto) (0.0-0.8) K/uL Eos # (Auto) (0.0-0.7) K/uL Baso # (Auto) (0.0-0.1) K/uL Nucleated RBC % /100WBC Nucleated RBCs # K/uL Sodium 137 (136-146) mmol/L Potassium 4.3 (3.5-5.1) mmol/L Chloride 104 (98-110) mmol/L Carbon Dioxide 26 (21-31) mmol/L BUN 15 (6.0-23.0) mg/dL Creatinine 0.8 (0.6-1.5) mg/dL Est Cr Clr Drug Dosing 87.59 mL/min Estimated GFR (MDRD) > 60.0 ml/min Glucose 91 (60-110) mg/dL Calcium 8.5 L (8.8-10.8) mg/dL Blood Type Antibody Screen Crossmatch Med Orders - Current: Current Medications Acetaminophen (Tylenol) 650 mg PO Q4H PRN PRN Reason: Pain Loperamide HCl (Imodium) 2 mg PO BID [facility] Last Admin: 05/24/17 09:42 Dose: Not Given Ondansetron HCl (Zofran) 4 mg IVPUSH Q4H PRN PRN Reason: Nausea Pantoprazole Sodium (Protonix Iv) 40 mg IVPUSH Q12H [facility] Last Admin: 05/24/17 00:19 Dose: 40 mg Xalatan Opthalmic 0 each EYEBOTH DAILY [facility] Last Admin: 05/24/17 09:44 Dose: Not Given Sodium Chloride (Saline Flush) 2.5 ml FLUSH ASDIRECTED PRN PRN Reason: Keep Vein Open Temazepam (Restoril) 15 mg PO BEDTIME PRN PRN Reason: Sleep Last Admin: 05/24/17 00:20 Dose: 15 mg Tramadol HCl (Ultram) 50 mg PO Q4H PRN PRN Reason: Pain Last Admin: 05/23/17 22:55 Dose: 50 mg Discontinued Medications Sodium Chloride (Saline Flush) 10 ml FLUSH ASDIRECTED PRN PRN Reason: Keep Vein Open Sodium Chloride (Saline Flush) 2.5 ml FLUSH ASDIRECTED PRN PRN Reason: Keep Vein Open - Exam General: Reports: Alert, Oriented, Cooperative, No Acute Distress Neck: Reports: Supple Lungs: Reports: Clear to Auscultation, Normal Respiratory Effort Cardiovascular: Reports: Regular Rate, Regular Rhythm GI/Abdominal Exam: Normal Bowel Sounds, Soft, Non-Tender, No Organomegaly, No Distention, No Abnormal Bruit, No Mass, Pelvis Stable Back Exam: Reports: Normal Inspection, Full Range of Motion Extremities: Pedal Edema (+1 to 2 edema to entire L leg.) Skin: Reports: Ecchymosis (bruising to lower L back, glute, extending down L leg , healing. Most tenderness noted to L lateral thigh) Neurological: Reports: No New Focal Deficit, Other (no parathesias and pulses present to L leg.) Psy/Mental Status: Reports: Alert, Normal Affect, Normal Mood *Q Meaningful Use (DIS) - VTE *Q VTE Criteria *Q: - Stroke *Q Stroke Criteria *Q: - AMI *Q AMI Criteria *Q:
== END 2017-05-24 11:30 | disposition home or self-care (01) ==
LOC: MW.ED 08:46 → MW.MS 11:11
PROVIDERS: ADMIT Internal Medicine; ATTEND Internal Medicine
DX: S70.12XA Contusion of left thigh, initial encounter (principal); D64.89 Other specified anemias; D56.3 Thalassemia minor; I10 Essential (primary) hypertension; I25.2 Old myocardial infarction; E78.00 Pure hypercholesterolemia, unspecified; N40.0 Benign prostatic hyperplasia without lower urinary tract symptoms; M19.90 Unspecified osteoarthritis, unspecified site; W19.XXXA Unspecified fall, initial encounter; Z85.038 Personal history of other malignant neoplasm of large intestine; Z79.899 Other long term (current) drug therapy; Z90.49 Acquired absence of other specified parts of digestive tract; Z98.890 Other specified postprocedural states; Z87.891 Personal history of nicotine dependence
CPT/HCPCS: 36415; 73552; 73700; 74176; 80048; 80053; 85014; 85018; 85025; 85610; 85730; 86850; 86900; 86901; 86920; 86921; 86922; 93971; 96374; 96376; 99285; A9270; C9113; G0378; P9016; 36430; 99284

== ENCOUNTER 2018-12-24 14:58 | Emergency (ER) | payer MEDICARE, BC ==
--- NOTE | 2018-12-24 15:09 | EDM.PDOC ---
ED HPI GENERAL MEDICAL PROBLEM - General Chief Complaint: Skin Complaint Stated Complaint: FISH HOOK IN ARM' Time Seen by Provider: 12/24/18 15:09 Source of Information: Reports: Patient History Limitations: Reports: No Limitations - History of Present Illness INITIAL COMMENTS - FREE TEXT/NARRATIVE: HISTORY AND PHYSICAL: History of present illness: Patient is a 73-year-old male presents to the ED with complaint of fish hook in his skin. Patient accidently hooked his right elbow this morning. He is not UTD on tetanus. He has no complaints at this time. Review of systems: As per history of present illness and below otherwise all systems reviewed and negative. Past medical history: As per history of present illness and as reviewed below otherwise noncontributory. Surgical history: As per history of present illness and as reviewed below otherwise noncontributory. Social history: No reported history of drug or alcohol abuse. Family history: As per history of present illness and as reviewed below otherwise noncontributory. Physical exam: General: Patient sitting comfortably in no acute distress and nontoxic appearing HEENT: Atraumatic, normocephalic, pupils reactive, negative for conjunctival pallor or scleral icterus, mucous membranes moist, throat clear, neck supple, nontender, trachea midline. No meningeal signs. Lungs: Clear to auscultation, breath sounds equal bilaterally, chest nontender. Heart: S1S2, regular, negative for clicks, rubs, or overt murmur. Abdomen: Soft, nondistended, nontender. Negative for masses or hepatosplenomegaly. Negative for costovertebral tenderness. No rigidity, rebound , guarding. Pelvis: Stable nontender. Genitourinary: Deferred. Rectal: Deferred. Extremities: There is a fish hook to the skin of the right elbow. negative for cords or calf pain. Neurovascular unremarkable. Neuro: Awake, alert, oriented. Cranial nerves II through XII unremarkable. Cerebellum unremarkable. Motor and sensory unremarkable throughout. Exam nonfocal. Notes: Diagnostics: none Therapeutics: Td Prescriptions: Impression: Fish hook injury right arm Plan: Follow up with primary care provider Return to ED as needed as discussed Definitive disposition and diagnosis as appropriate pending reevaluation and review of above. - Related Data Allergies Allergy/AdvReac Type Severity Reaction Status Date / Time No Known Allergies Allergy Verified 05/23/17 09:02 Home Meds: Home Meds Latanoprost [Xalatan 0.005% Ophth Soln] 1 drop EYEBOTH DAILY 03/23/17 [History] Loperamide HCl [Anti-Diarrheal] 2 tab PO BID 03/23/17 [History] Past Medical History HEENT History: Reports: Glaucoma Cardiovascular History: Reports: Hypertension Respiratory History: Reports: None Gastrointestinal History: Reports: Chronic Diarrhea Genitourinary History: Reports: BPH Musculoskeletal History: Reports: Arthritis, Other (See Below) Other Musculoskeletal History: degenerative joint disease. L ankle dislocation Neurological History: Reports: None Endocrine/Metabolic History: Reports: None Hematologic History: Reports: Anemia, Blood Transfusion(s), Other (See Below) Other Hematologic History: Thalsemia Minor Oncologic (Cancer) History: Reports: Colon - Infectious Disease History Infectious Disease History: Reports: Measles - Past Surgical History Head Surgeries/Procedures: Reports: None HEENT Surgical History: Reports: Cataract Surgery, Tonsillectomy GI Surgical History: Reports: Appendectomy, Cholecystectomy, Colon, Colonoscopy Other GI Surgeries/Procedures: hx hemicolectomy Neurological Surgical History: Reports: C-Spine, Lumbar Spine Musculoskeletal Surgical History: Reports: Knee Replacement, Other (See Below) Other Musculoskeletal Surgeries/Procedures:: hx surgery to left ankle & rt total knee replacement Social & Family History - Family History Family Medical History: Noncontributory - Caffeine Use Caffeine Use: Reports: None - Living Situation & Occupation Living situation: Reports: Occupation: Retired ED ROS GENERAL - Review of Systems Review Of Systems: ROS reveals no pertinent complaints other than HPI. ED EXAM, SKIN/RASH Exam: See Below (see dictation) ED SKIN PROCEDURES - Foreign Body Removal Indication:: Fish hook upper arm Consent Obtained:: Patient Performing Doctor:: Thomas Gonzalez Foreign Body Other Location Comment:: Fish hook skin of right upper arm/elbow Anesthesia Type: Local Anesthesia Other:: Skin cleansed with alcohol. 1cc 1% lidocaine injected to the area. #11 blade scalpel used to make a small incision. Fish hook pulled through without complications. Course - Vital Signs Last Recorded V/S: Last Vital Signs Temp 97.5 F 12/24/18 15:08 Pulse 76 12/24/18 15:08 Resp 16 12/24/18 15:08 BP 168/103 H 12/24/18 15:08 Pulse Ox 94 L 12/24/18 15:08 - Orders/Labs/Meds Orders: Active Orders 24 hr Category Date Time Status Vaccines to be Administered [RC] PER UNIT ROUTINE Care 12/24/18 15:13 Active Meds: Medications Discontinued Medications Generic Name Dose Route Start Last Admin Trade Name Grzegorz PRN Reason Stop Dose Admin Lidocaine HCl 5 ml 12/24/18 15:09 12/24/18 15:40 Xylocaine-Mpf 1% INJECT 12/24/18 15:10 5 ml ONETIME ONE Administration Tetanus/Diphtheria Toxoids 0.5 ml 12/24/18 15:13 12/24/18 15:40 Tenivac IM 12/24/18 15:14 0.5 ml .ONCE ONE Administration Departure - Departure Time of Disposition: 15:43 Disposition: Home, Self-Care 01 Condition: Good Clinical Impression: Fish hook injury of right upper arm - Discharge Information Referrals: PCP,Unknown [Primary Care Provider] - Forms: ED Department Discharge Additional Instructions: The following information is given to patients seen in the emergency department who are being discharged to home. This information is to outline your options for follow-up care. We provide all patients seen in our emergency department with a follow-up referral. The need for follow-up, as well as the timing and circumstances, are variable depending upon the specifics of your emergency department visit. If you don't have a primary care physician on staff, we will provide you with a referral. We always advise you to contact your personal physician following an emergency department visit to inform them of the circumstance of the visit and for follow-up with them and/or the need for any referrals to a consulting specialist. The emergency department will also refer you to a specialist when appropriate. This referral assures that you have the opportunity for follow-up care with a specialist. All of these measure are taken in an effort to provide you with optimal care, which includes your follow-up. Under all circumstances we always encourage you to contact your private physician who remains a resource for coordinating your care. When calling for follow-up care, please make the office aware that this follow-up is from your recent emergency room visit. If for any reason you are refused follow-up, please contact the [facility] Emergency Department at and asked to speak to the emergency department charge nurse. [facility] [address] [place] [address] [facility] [address] [place] [id number] Follow up with primary care provider Return to ED as needed as discussed - My Orders Last 24 Hours: My Active Orders 12/24/18 15:13 Vaccines to be Administered [RC] PER UNIT ROUTINE - Assessment/Plan Last 24 Hours: My Active Orders 12/24/18 15:13 Vaccines to be Administered [RC] PER UNIT ROUTINE
[2018-12-24] MEDS ORDERED: Diphtheria/Tetanus Toxoids,Adult (Td) 0.5 ML Syringe IM ONE (15:13)
[2018-12-24 17:43] VITALS: BP 148/104; PULSE 73
== END 2018-12-24 16:00 | disposition home or self-care (01) ==
LOC: MW.ED 14:58
DX: S50.351A Superficial foreign body of right elbow, initial encounter (principal); C18.9 Malignant neoplasm of colon, unspecified; I10 Essential (primary) hypertension; Z23 Encounter for immunization; Z79.899 Other long term (current) drug therapy; W45.8XXA Other foreign body or object entering through skin, initial encounter
CPT/HCPCS: 10120; 90471; 90714; 99283; J2001; 99282

== ENCOUNTER 2020-04-22 06:30 | Day surgery (SDC) | payer MEDICARE, BC ==
[2020-04-22] MEDS ORDERED: Midazolam 1 MG/ML 2 ML SDV ONE (07:13)
[2020-04-22] MEDS ORDERED: Propofol 200 MG/20 ML SDV ONE ×2 (07:13→08:09)
--- NOTE | 2020-04-22 07:20 | PCM.PREANE ---
Preanesthetic Assessment - Anesthesia/Transfusion/Family Hx Anesthesia History: Prior Anesthesia Without Reaction Family History of Anesthesia Reaction: No Transfusion History: Prior Transfusion Without Reaction Intubation History: Unknown - Review of Systems General: No Symptoms Pulmonary: No Symptoms Cardiovascular: No Symptoms Gastrointestinal: No Symptoms Neurological: No Symptoms Other: Reports: None - Physical Assessment NPO Status Date: 04/21/20 Vital Signs: Last Vital Signs Temp 98.1 F 04/22/20 06:37 Pulse 61 04/22/20 06:37 Resp 15 04/22/20 06:37 BP 156/98 H 04/22/20 06:37 Pulse Ox 97 04/22/20 06:37 Height: 5 ft 11 in Weight: 90.718 kg ASA Class: 2 Mental Status: Alert & Oriented x3 Airway Class: Mallampati = 2 Dentition: Reports: Normal Dentition ROM/Head Extension: Full Lungs: Clear to Auscultation, Normal Respiratory Effort Cardiovascular: Regular Rate, Regular Rhythm - Allergies Allergies/Adverse Reactions: Allergies Allergy/AdvReac Type Severity Reaction Status Date / Time No Known Allergies Allergy Verified 04/16/20 07:55 - Blood Blood Available: No - Anesthesia Plan Pre-Op Medication Ordered: None - Acknowledgements Anesthesia Type Planned: General Anesthesia Pt an Appropriate Candidate for the Planned Anesthesia: Yes Alternatives and Risks of Anesthesia Discussed w Pt/Guardian: Yes Pt/Guardian Understands and Agrees with Anesthesia Plan: Yes PreAnesthesia Questionnaire HEENT History: Reports: Glaucoma Cardiovascular History: Reports: Hypertension Respiratory History: Reports: None Gastrointestinal History: Reports: Chronic Diarrhea Genitourinary History: Reports: BPH Musculoskeletal History: Reports: Other (See Below) Other Musculoskeletal History: degenerative joint disease. L ankle dislocation Neurological History: Reports: None Psychiatric History: Reports: None Endocrine/Metabolic History: Reports: None Hematologic History: Reports: Blood Transfusion(s), Other (See Below) Other Hematologic History: Thalsemia Minor (blood doesn't coagulate as quickly as should) Immunologic History: Reports: None Oncologic (Cancer) History: Reports: Colon Dermatologic History: Reports: None - Infectious Disease History Infectious Disease History: Reports: Measles - Past Surgical History Head Surgeries/Procedures: Reports: None HEENT Surgical History: Reports: Cataract Surgery, Tonsillectomy Cardiovascular Surgical History: Reports: None GI Surgical History: Reports: Appendectomy, Cholecystectomy, Colon, Colonoscopy Other GI Surgeries/Procedures: hx hemicolectomy Female Surgical History: Male Surgical History: Reports: None Neurological Surgical History: Reports: C-Spine, Lumbar Spine Other Neurological Surgeries/Procedures: hx back surgery Musculoskeletal Surgical History: Reports: Knee Replacement, Other (See Below) Other Musculoskeletal Surgeries/Procedures:: hx surgery to left ankle & rt total knee replacement Oncologic Surgical History: Reports: Other (See Below) Other Oncologic Surgeries/Procedures: hemicolectomy - SUBSTANCE USE Tobacco Use Status *Q: Former Tobacco User - HOME MEDS Home Medications: Home Meds Brimonidine Tartrate [Brimonidine Tartrate 0.2% Ophth Soln] 1 drop EYEBOTH BEDTIME 04/16/20 [History] Loperamide HCl [Imodium A-D] 2 tab PO BID 04/16/20 [History] Propranolol [Inderal] 1 tab PO DAILY 04/16/20 [History] Timolol Maleate/PF [Timolol Maleate 0.5% Eye Drop] 1 drop EYEBOTH BEDTIME 04/16/20 [History] - CURRENT (IN HOUSE) MEDS Current Meds: Current Medications Lactated Ringer's (Ringers, Lactated) 1,000 mls @ 125 mls/hr IV ASDIRECTED NAVI Last Admin: 04/22/20 07:00 Dose: 125 mls/hr Documented by: Discontinued Medications Midazolam HCl (Versed 1 Mg/Ml) Confirm Administered Dose 2 mg .ROUTE .STK-MED ONE Stop: 04/22/20 07:14 Propofol (Diprivan 20 Ml) Confirm Administered Dose 400 mg .ROUTE .STK-MED ONE Stop: 04/22/20 07:14
[2020-04-22] MEDS ORDERED: fentaNYL 100 MCG/2 ML SDV ONE (07:33)
[2020-04-22] MEDS ORDERED: Labetalol 100 MG/20 ML MDV ONE (08:00)
--- NOTE | 2020-04-22 08:27 | PCM.OPNOTE ---
- General Post-Op/Procedure Note Date of Surgery/Procedure: 04/22/20 Operative Procedure(s): colonoscope w bx Findings: see [id number] Pre Op Diagnosis: colon polyp Post-Op Diagnosis: Same Anesthesia Technique: Moderate Sedation Primary Surgeon: Sb Lino Pathology: 2 mm sessile polyp at 65 cm when scope came out Complications: None Condition: Good
--- NOTE | 2020-04-22 09:00 | PCM.POSTAN ---
POST ANESTHESIA ASSESSMENT - MENTAL STATUS Mental Status: Alert, Oriented - VITAL SIGNS Vital Signs: Last Vital Signs Temp 98.1 F 04/22/20 06:37 Pulse 70 04/22/20 08:31 Resp 14 04/22/20 08:31 BP 123/77 04/22/20 08:31 Pulse Ox 97 04/22/20 08:31 - RESPIRATORY Respiratory Status: Respiratory Rate WNL, Airway Patent, O2 Saturation Stable - CARDIOVASCULAR CV Status: Pulse Rate WNL, Blood Pressure Stable - GASTROINTESTINAL GI Status: No Symptoms - POST OP HYDRATION Hydration Status: Adequate & Stable
--- NOTE | 2020-04-22 09:00 | PCM48HPAN ---
Post Anesthesia Note - EVALUATION WITHIN 48HRS OF ANESTHETIC Vital Signs in Normal Range: Yes Patient Participated in Evaluation: Yes Respiratory Function Stable: Yes Airway Patent: Yes Cardiovascular Function Stable: Yes Hydration Status Stable: Yes Pain Control Satisfactory: Yes Nausea and Vomiting Control Satisfactory: Yes Mental Status Recovered: Yes Vital Signs: Last Vital Signs Temp 98.1 F 04/22/20 06:37 Pulse 70 04/22/20 08:31 Resp 14 04/22/20 08:31 BP 123/77 04/22/20 08:31 Pulse Ox 97 04/22/20 08:31
[2020-04-22 09:03] VITALS: BP 135/87; PULSE 63
--- NOTE | 2020-04-22 13:24 | OR ---
SURGEON: Sb Lino MD DATE OF PROCEDURE: 04/22/2020 PREOPERATIVE DIAGNOSIS: History of colon polyp. POSTOPERATIVE DIAGNOSIS: History of colon polyp. PROCEDURE PERFORMED: Colonoscopy with biopsy. DESCRIPTION OF PROCEDURE: The patient was taken to the endoscopy room. A time out was called, patient identified, and procedure identified. Diprivan was then administrated. Patient went from awake to sleep, hearing doctor talking or door closing is normal. Perineum inspection and digital examination were then performed. A well- lubricated colonoscope was gently inserted through the rectum, advanced past the rectosigmoid junction, the descending colon, splenic flexure, transverse colon, hepatic flexure, ascending colon, and cannulated the terminal ileum as pt s/p right hemicolectomy; scope was carefully withdrawn while attention was paid to the mucosal surface for any abnormality. Air will be sucked out during the scope withdrawal. At the rectum, retroflexed to examine any rectal diseases, fistula or hemorrhoids. During mucosal examination, abnormality or polyp was noted; picture taken and biopsy performed. Patient tolerated procedure well. There were no intraoperative complications, and Dr. Lino was present throughout the whole procedure. FINDINGS: 1. The patient is easily sedated with SANITARY CHEMIST and Diprivan. The patient is soundly snoring. 2. The patient's bowel prep is average with some liquid stool and 1 stool ball, and no semi-formed stool. 3. The patient's colon is rather straightforward. Cecum is not observed. The patient has a right hemicolectomy surgery. Cannulated all the way. The ScopeGuide is pointing south. During the whole examination, there was no mass or growth abnormality observed. There is a tiny polyp, 2 mm, at distance 65 when the scope was coming out, and the patient has mild diverticulosis at the left colon. No signs or symptoms of diverticulitis, and previous biopsy at distance of 30 was squeaky clean. The patient has mild internal hemorrhoids and mild external hemorrhoids. The patient will benefit from repeat colonoscopy on an as need basis as the patient is 75 years old. Other than above-mentioned, no other pathology, AV malformation, bleeding, or ulcer observed. Stool is yellow in color. SANIA / JC /[id number] FRIEDA
== END 2020-04-22 09:20 | disposition home or self-care (01) ==
LOC: MW.SDS 06:30
PROVIDERS: ATTEND Surgery
DX: Z12.11 Encounter for screening for malignant neoplasm of colon (principal); D12.8 Benign neoplasm of rectum; K57.30 Diverticulosis of large intestine without perforation or abscess without bleeding; K64.8 Other hemorrhoids; K64.4 Residual hemorrhoidal skin tags; N40.0 Benign prostatic hyperplasia without lower urinary tract symptoms; N52.9 Male erectile dysfunction, unspecified; I10 Essential (primary) hypertension; Z79.899 Other long term (current) drug therapy; Z90.49 Acquired absence of other specified parts of digestive tract; Z85.038 Personal history of other malignant neoplasm of large intestine; Z98.890 Other specified postprocedural states; Z87.891 Personal history of nicotine dependence
CPT/HCPCS: 45380; J2001; J2250; J2704; J3490; J7120; 00812; 88305; J3010

== ENCOUNTER 2021-11-20 07:19 | Emergency (ER) | payer MEDICARE, BC ==
[2021-11-20 07:51] VITALS: BP 157/96; PULSE 61
== END 2021-11-20 11:12 ==
LOC: MW.ED 07:19
DX: K06.8 Other specified disorders of gingiva and edentulous alveolar ridge (principal); I10 Essential (primary) hypertension; Z79.899 Other long term (current) drug therapy; Z90.49 Acquired absence of other specified parts of digestive tract
CPT/HCPCS: 36415; 85025; 85610; 85730; 99284

== ENCOUNTER 2023-01-15 07:39 | Inpatient (IN) | payer MEDICARE, BC ==
[2023-01-15 08:59] LABS: BASOPHILS PERCENT AUTO 0.4 % (0.0-1.5); EOSINOPHILS ABSOLUTE AUTO 0.3 K/uL (0.0-0.7); EOSINOPHILS PERCENT AUTO 3.7 % (0.0-7.0); HEMATOCRIT 37.8 % (38.0-50.0); LYMPHOCYTES ABSOLUTE AUTO 1.8 K/uL (0.6-2.4); LYMPHOCYTES PERCENT AUTO 26.4 % (16.0-40.0); MEAN CORPUSCULAR HEMOGLOBIN 19.6 pg (27.0-32.0); MEAN CORPUSCULAR HGB CONC 31.7 g/dL (31.0-37.0); MEAN CORPUSCULAR VOLUME 61.8 fL (80.0-98.0); MONOCYTES ABSOLUTE AUTO 0.6 K/uL (0.0-0.8); MONOCYTES PERCENT AUTO 8.3 % (0.0-15.0); NEUTROPHILS ABSOLUTE AUTO 4.3 K/uL (1.4-5.7); NEUTROPHILS PERCENT AUTO 61.2 % (48.0-80.0); NRBC ABSOLUTE 0 K/uL; RED BLOOD CELL COUNT 6.12 M/uL (4.50-5.90); WHITE BLOOD CELL COUNT,WBC 6.96 K/uL (4.0-11.0)
[2023-01-15 09:17] LABS: INR 1.07 (0.86-1.11); PLATELET COUNT,PLT 253 K/uL (150-400)
[2023-01-15 09:24] LABS: ALBUMIN 3.4 g/dL (3.4-5.0); BILIRUBIN TOTAL 1.1 mg/dL (0.2-1.0); CALCIUM 7.8 mg/dL (8.5-10.1); CARBON DIOXIDE,CO2 27.5 mmol/L (21.0-32.0); EST CRCL DRUG DOSING (CG) 64.84 mL/min; POTASSIUM,K 3.8 mmol/L (3.5-5.1); PROTEIN TOTAL,TP 6.9 g/dL (6.4-8.2)
[2023-01-15] MEDS ORDERED: Iopamidol 755 MG/ML 500 ML Multipack Bottle IVPUSH STA (11:39)
[2023-01-15] MEDS ORDERED: hydrALAZINE 20 MG/ML SDV IVPUSH PRN (12:42)
[2023-01-15] MEDS ORDERED: Ondansetron 4 MG/2 ML SDV IVPUSH PRN (15:45)
[2023-01-15] MEDS ORDERED: Acetaminophen 500 MG Tab PO PRN (15:45)
[2023-01-15] MEDS ORDERED: Albuterol/Ipratropium 3.0-0.5 MG/3 ML Neb Soln NEB PRN (18:17)
[2023-01-15 18:49] LABS: TSH ULTRASENSITIVE 1.85 uIU/mL (0.36-3.74)
[2023-01-15] MEDS ORDERED: Non-Formulary Medication 1 Each PO SCH (21:00)
[2023-01-15] MEDS ORDERED: Loperamide 2 MG Cap PO SCH (21:00)
[2023-01-15] MEDS ORDERED: Timolol Maleate 0.5% Ophth Soln 15 ML Bottle EYEBOTH SCH (21:00)
[2023-01-15] MEDS ORDERED: Brimonidine 0.2% Ophth Soln 5 ML Bottle EYEBOTH SCH (21:00)
[2023-01-15] MEDS: Loperamide 2 MG Cap PO SCH (21:25)
[2023-01-15] MEDS ORDERED: diphenhydrAMINE 25 MG Cap PO PRN (21:31)
[2023-01-16 06:35] LABS: BASOPHILS PERCENT AUTO 0.4 % (0.0-1.5); EOSINOPHILS ABSOLUTE AUTO 0.3 K/uL (0.0-0.7); EOSINOPHILS PERCENT AUTO 3.7 % (0.0-7.0); HEMATOCRIT 37.9 % (38.0-50.0); HEMOGLOBIN 12.1 g/dL (13.0-17.0); LYMPHOCYTES ABSOLUTE AUTO 2.6 K/uL (0.6-2.4); LYMPHOCYTES PERCENT AUTO 32.6 % (16.0-40.0); MEAN CORPUSCULAR HEMOGLOBIN 19.7 pg (27.0-32.0); MEAN CORPUSCULAR HGB CONC 31.9 g/dL (31.0-37.0); MEAN CORPUSCULAR VOLUME 61.8 fL (80.0-98.0); MONOCYTES ABSOLUTE AUTO 0.7 K/uL (0.0-0.8); NEUTROPHILS ABSOLUTE AUTO 4.3 K/uL (1.4-5.7); NEUTROPHILS PERCENT AUTO 54.3 % (48.0-80.0); NRBC ABSOLUTE 0 K/uL; RED BLOOD CELL COUNT 6.13 M/uL (4.50-5.90); WHITE BLOOD CELL COUNT,WBC 7.92 K/uL (4.0-11.0)
[2023-01-16 06:42] LABS: A/G RATIO 1.1 (0.9-1.6); ALBUMIN 3.5 g/dL (3.4-5.0); BILIRUBIN TOTAL 1.4 mg/dL (0.2-1.0); CALCIUM 8.4 mg/dL (8.5-10.1); CARBON DIOXIDE,CO2 32.3 mmol/L (21.0-32.0); EST CRCL DRUG DOSING (CG) 64.84 mL/min; POTASSIUM,K 4.1 mmol/L (3.5-5.1); PROTEIN TOTAL,TP 6.7 g/dL (6.4-8.2)
[2023-01-16 06:48] LABS: PLATELET COUNT,PLT 267 K/uL (150-400)
[2023-01-16] MEDS ORDERED: Gadobenate Dimeglumine 529 MG/ML 20 ML SDV IVPUSH STA (07:19)
[2023-01-16] MEDS: LOPERAMIDE HCL 2 MG PO SCH ×2 (07:24→08:42)
[2023-01-16] MEDS: Loperamide 2 MG Cap PO SCH (08:43)
[2023-01-16] MEDS ORDERED: Propranolol 10 MG Tab PO SCH (09:00)
[2023-01-16 12:49] VITALS: BP 140/86; PULSE 60
[2023-01-16] MEDS ORDERED: Timolol Maleate 0.5% Ophth Soln 15 ML Bottle EYEBOTH SCH (21:00)
== END 2023-01-16 12:54 | disposition home or self-care (01) | DRG 64 ==
LOC: MW.ED 07:39 → MW.MS 14:46
PROVIDERS: ADMIT Family Medicine; ATTEND Family Medicine
DX: I63.9 Cerebral infarction, unspecified (principal); I61.9 Nontraumatic intracerebral hemorrhage, unspecified; R53.1 Weakness; I10 Essential (primary) hypertension; D64.9 Anemia, unspecified; D56.3 Thalassemia minor; I34.81 Nonrheumatic mitral (valve) annulus calcification; H40.9 Unspecified glaucoma; M10.9 Gout, unspecified; Z96.651 Presence of right artificial knee joint; N40.0 Benign prostatic hyperplasia without lower urinary tract symptoms; Z90.89 Acquired absence of other organs; Z98.49 Cataract extraction status, unspecified eye; Z98.890 Other specified postprocedural states; Z90.49 Acquired absence of other specified parts of digestive tract; Z85.038 Personal history of other malignant neoplasm of large intestine; Z79.899 Other long term (current) drug therapy
CPT/HCPCS: 36415; 70450; 70496; 70498; 71046; 80053; 80061; 82607; 84443; 84484; 85025; 85610; 86592; 93005; Q9967; 70553; 70553-26; 93010; 93306; 99222; 99239; 99291; A9270-GY; A9577; G0103

== ENCOUNTER 2023-12-27 06:22 | Observation (INO) | payer MEDICARE, BC ==
[2023-12-27] MEDS ORDERED: Famotidine 20 MG/2 ML SDV ONE (06:57)
[2023-12-27] MEDS: Lactated Ringers 1,000 ML IV SCH (06:58)
[2023-12-27] MEDS ORDERED: Ropivacaine 49.25 ML, Ketorolac 30 MG, EPINEPHrine 0.5 MG, cloNIDine 80 MCG in Sodium C... INJECT SCH (07:00)
[2023-12-27] MEDS ORDERED: Ropivacaine 0.5% 5 MG/ML 30 ML SDV ONE (07:15)
[2023-12-27] MEDS: Famotidine 20 MG/2 ML SDV IVPUSH SCH (07:15)
[2023-12-27] MEDS ORDERED: dexmedeTOMIDine HCl 200 MCG/2 ML SDV ONE ×2 (07:16→09:04)
[2023-12-27] MEDS ORDERED: Water For Injection, Sterile 20 ML ONE ×2 (07:16→08:05)
[2023-12-27] MEDS ORDERED: fentaNYL 100 MCG/2 ML SDV ONE (07:29)
[2023-12-27] MEDS ORDERED: Ketamine HCL/NACL, ISO-OSM 50 MG/5 ML Syringe ONE (07:29)
[2023-12-27] MEDS ORDERED: propofoL 50 ML ONE ×2 (07:29→08:29)
[2023-12-27] MEDS ORDERED: Ketamine 500 mg/10 ML MDV ONE (07:32)
[2023-12-27] MEDS ORDERED: Lidocaine 2% 5 ML SDV ONE (07:34)
[2023-12-27] MEDS ORDERED: Tranexamic Acid IN NACL,ISO-OS 1,000 MG in Premix Bag 1 BAG IV SCH (08:00)
[2023-12-27] MEDS ORDERED: ceFAZolin 2 GM Vial ONE (08:05)
[2023-12-27] MEDS ORDERED: Tranexamic Acid 1,000 MG/10 ML Vial ONE (08:05)
[2023-12-27] MEDS ORDERED: Lidocaine 2% 11 ML Jelly Filled Syringe ONE (08:19)
[2023-12-27] MEDS ORDERED: Propofol 200 MG/20 ML SDV ONE (09:56)
[2023-12-27] MEDS ORDERED: Metoclopramide 10 MG/2 ML SDV IVPUSH PRN ×2 (10:24→10:29)
[2023-12-27] MEDS ORDERED: Morphine 2 MG/ML SYRINGE IVPUSH PRN ×2 (10:24→10:51)
[2023-12-27] MEDS ORDERED: Phenylephrine HCl In 0.9% NaCl 1 MG/10 ML Syringe IVPUSH PRN ×2 (10:24→10:29)
[2023-12-27] MEDS ORDERED: Albuterol 0.083% 2.5 MG/3 ML Neb Soln NEB PRN ×2 (10:24→10:29)
[2023-12-27] MEDS ORDERED: Ondansetron 4 MG/2 ML SDV IVPUSH PRN ×3 (10:24→10:51)
[2023-12-27] MEDS ORDERED: HYDROmorphone 1 MG/ML Syringe IVPUSH PRN ×2 (10:24→10:29)
[2023-12-27] MEDS ORDERED: Naloxone 0.4 MG/ML SDV IVPUSH PRN ×2 (10:24→10:29)
[2023-12-27] MEDS ORDERED: fentaNYL 50 MCG/ML SDV IVPUSH PRN ×2 (10:24→10:29)
[2023-12-27] MEDS ORDERED: Sodium Chloride 0.9% 10 ML Syringe FLUSH PRN (10:51)
[2023-12-27] MEDS ORDERED: oxyCODONE 5 MG Tab PO PRN (10:51)
[2023-12-27] MEDS ORDERED: diphenhydrAMINE 25 MG Cap PO PRN (10:51)
[2023-12-27] MEDS ORDERED: Sodium Chloride 0.9% 2.5 ML Syringe FLUSH PRN (10:51)
[2023-12-27] MEDS ORDERED: ePHEDrine 50 MG/ML SDV IV ONE (12:45)
[2023-12-27 14:00] LABS: BASOPHILS ABSOLUTE AUTO 0.05 K/uL (0.00-0.20); BASOPHILS PERCENT AUTO 0.5 % (0.0-1.0); EOSINOPHILS ABSOLUTE AUTO 0.16 K/uL (0.00-0.45); EOSINOPHILS PERCENT AUTO 1.5 % (0.0-6.0); HEMATOCRIT 32.1 % (42.0-52.0); HEMOGLOBIN 10.3 g/dL (14.0-18.0); IMMATURE GRAN ABSOLUTE AUTO 0.04 K/uL (0.00-0.05); IMMATURE GRAN PERCENT AUTO 0.4 % (0.0-0.4); LYMPHOCYTES ABSOLUTE AUTO 2.75 K/uL (1.00-4.80); LYMPHOCYTES PERCENT AUTO 26.6 % (24.0-44.0); MEAN CORPUSCULAR HEMOGLOBIN 19.8 pg (28.0-32.0); MEAN CORPUSCULAR HGB CONC 32.1 g/dL (32.0-36.0); MEAN CORPUSCULAR VOLUME 61.7 fL (83.0-99.0); MEAN PLATELET VOLUME 10.9 fL (9.4-12.4); MONOCYTES ABSOLUTE AUTO 0.78 K/uL (0.00-0.80); MONOCYTES PERCENT AUTO 7.6 % (0.0-8.0); NEUTROPHILS ABSOLUTE AUTO 6.55 K/uL (1.80-7.70); NEUTROPHILS PERCENT AUTO 63.4 % (41.0-71.0); PLATELET COUNT,PLT 252 K/uL (150-400); WHITE BLOOD CELL COUNT,WBC 10.33 K/uL (3.9-11.3)
[2023-12-27 14:18] LABS: CALCIUM 8.1 mg/dL (8.5-10.1); EST CRCL DRUG DOSING (CG) 63.8 mL/min; MAGNESIUM 1.8 mg/dL (1.8-2.4)
[2023-12-27] MEDS: Acetaminophen 325 MG Tab PO SCH (16:50)
[2023-12-27] MEDS: Ketorolac 30 MG/ML SDV IVPUSH SCH (16:51)
[2023-12-27] MEDS: ceFAZolin 2 GM in Sodium Chloride 0.9% 50 ML IV SCH ×2 (16:51→17:07)
[2023-12-27] MEDS: Morphine 2 MG/ML SYRINGE IVPUSH PRN (17:41)
[2023-12-27] MEDS: Docusate Sodium 100 MG Cap PO SCH (20:21)
[2023-12-27] MEDS: Aspirin 325 MG Tab PO SCH (21:37)
[2023-12-28 05:54] LABS: HEMATOCRIT 31.7 % (42.0-52.0)
[2023-12-28 06:10] LABS: CALCIUM 8.2 mg/dL (8.5-10.1); CREATININE 1.1 mg/dL (0.8-1.3); POTASSIUM,K 4.2 mmol/L (3.5-5.1)
[2023-12-28] MEDS: Polyethylene Glycol 3350 Powder 17 GM Packet PO SCH (09:49)
[2023-12-28] MEDS: Propranolol 60 MG Cap.ER PO SCH (09:54)
[2023-12-28] MEDS: Hydrochlorothiazide 12.5 MG Cap PO SCH (09:54)
[2023-12-28] MEDS: traMADol 50 MG Tab PO PRN (09:55)
[2023-12-28 11:44] VITALS: BP 135/77; PULSE 98
[2023-12-28] MEDS ORDERED: Brimonidine 0.2% Ophth Soln 5 ML Bottle EYEBOTH SCH (21:00)
[2023-12-28] MEDS ORDERED: Timolol Maleate 0.5% Ophth Soln 5 ML Bottle EYEBOTH SCH (21:00)
== END 2023-12-28 14:30 | disposition home or self-care (01) ==
LOC: MW.SDS 06:22 → MW.MS 12:44
PROVIDERS: ADMIT Orthopaedic Surgery; ATTEND Orthopaedic Surgery
DX: T84.092A Other mechanical complication of internal right knee prosthesis, initial encounter (principal); I10 Essential (primary) hypertension; G45.9 Transient cerebral ischemic attack, unspecified; D56.3 Thalassemia minor; Z79.899 Other long term (current) drug therapy; Z79.82 Long term (current) use of aspirin; Z85.038 Personal history of other malignant neoplasm of large intestine; Z96.651 Presence of right artificial knee joint; Y83.1 Surgical operation with implant of artificial internal device as the cause of abnormal reaction of the patient, or of later complication, without mention of misadventure at the time of the procedure
CPT/HCPCS: 27487; 36415; 73560; 80048; 83735; 85014; 85018; 85025; 86850; 86900; 86901; 97116; 97161; 97530; A9270; C1776; J0131; J0171; J0690; J0735; J1885; J2270; J2704; J2795; J3010; J3490; J7120; 01402; 64447; 96365; 96375; 96376; 99100; G0378

== ENCOUNTER 2024-05-31 13:36 | Emergency (ER) | payer MEDICARE, BC ==
[2024-05-31 15:40] VITALS: BP 163/99; PULSE 63
== END 2024-05-31 17:08 | disposition home or self-care (01) ==
LOC: MW.ED 13:36
DX: S46.202A Unspecified injury of muscle, fascia and tendon of other parts of biceps, left arm, initial encounter (principal); I10 Essential (primary) hypertension; Z75.8 Other problems related to medical facilities and other health care; Z79.899 Other long term (current) drug therapy; Z90.49 Acquired absence of other specified parts of digestive tract; X58.XXXA Exposure to other specified factors, initial encounter
CPT/HCPCS: 93971-26-LT; 93971-LT; 99283

== ENCOUNTER 2024-07-03 08:07 | Observation (INO) | payer MEDICARE, BC ==
[~2024-07-03 08:07] MED LIST changes: +Albuterol 0.083% 2.5 MG/3 ML Neb Soln NEB PRN; +HYDROmorphone 1 MG/ML Syringe IVPUSH PRN; -Lactated Ringers 1,000 ML IV SCH; +Metoclopramide 10 MG/2 ML SDV IVPUSH PRN; +Morphine 2 MG/ML SYRINGE IVPUSH PRN; +Naloxone 0.4 MG/ML SDV IVPUSH PRN; +Ondansetron 4 MG/2 ML SDV IVPUSH PRN; +Phenylephrine HCl In 0.9% NaCl 1 MG/10 ML Syringe IVPUSH PRN; +Ropivacaine 49.25 ML, Ketorolac 30 MG, EPINEPHrine 0.5 MG, cloNIDine 80 MCG in Sodium C... INJECT SCH; +fentaNYL 50 MCG/ML SDV IVPUSH PRN
[2024-07-03] MEDS ORDERED: Famotidine 20 MG/2 ML SDV ONE (08:43)
[2024-07-03] MEDS: Lactated Ringers 1,000 ML IV SCH (08:49)
[2024-07-03] MEDS: Famotidine 20 MG/2 ML SDV IVPUSH SCH (08:50)
[2024-07-03] MEDS ORDERED: Ondansetron 4 MG/2 ML SDV ONE (08:58)
[2024-07-03] MEDS ORDERED: Dexamethasone 4 MG/ML 5 ML MDV ONE (08:58)
[2024-07-03] MEDS ORDERED: Sodium Chloride 0.9% 20 ML ONE (10:53)
[2024-07-03] MEDS ORDERED: Tranexamic Acid 1,000 MG/10 ML Vial ONE (11:46)
[2024-07-03] MEDS ORDERED: ceFAZolin 2 GM Vial ONE (11:46)
[2024-07-03] MEDS ORDERED: ePHEDrine 50 MG/ML SDV ONE (12:20)
[2024-07-03] MEDS ORDERED: Phenylephrine HCl In 0.9% NaCl 1 MG/10 ML Syringe ONE (12:20)
[2024-07-03] MEDS ORDERED: Propofol 200 MG/20 ML SDV ONE (13:23)
[2024-07-03 14:13] LABS: HEMATOCRIT 32.7 % (42.0-52.0); HEMOGLOBIN 10.2 g/dL (14.0-18.0)
[2024-07-03] MEDS ORDERED: diphenhydrAMINE 25 MG Cap PO PRN (14:53)
[2024-07-03] MEDS ORDERED: oxyCODONE 5 MG Tab PO PRN (14:53)
[2024-07-03] MEDS ORDERED: Sodium Chloride 0.9% 10 ML Syringe FLUSH PRN (14:53)
[2024-07-03] MEDS ORDERED: Sodium Chloride 0.9% 2.5 ML Syringe FLUSH PRN (14:53)
[2024-07-03] MEDS ORDERED: Ondansetron 4 MG/2 ML SDV IVPUSH PRN (14:53)
[2024-07-03] MEDS ORDERED: traMADol 50 MG Tab PO PRN ×2 (14:53)
[2024-07-03] MEDS: Tranexamic Acid in NACL,ISO-OS 1,000 MG in Premix Bag 1 BAG IV ONE (19:45)
[2024-07-03] MEDS: Acetaminophen 325 MG Tab PO SCH (20:16)
[2024-07-03] MEDS: ceFAZolin 2 GM in Sodium Chloride 0.9% 50 ML IV SCH (20:28)
[2024-07-03] MEDS: Melatonin 3 MG Tab PO SCH (20:37)
[2024-07-03] MEDS: Docusate Sodium 100 MG Cap PO SCH (20:37)
[2024-07-03] MEDS: Aspirin 325 MG Tab PO SCH (20:39)
[2024-07-03] MEDS ORDERED: Loperamide 2 MG Cap PO PRN (22:05)
[2024-07-03] MEDS: oxyCODONE 5 MG Tab PO PRN (23:22)
[2024-07-04] MEDS: ceFAZolin 2 GM in Sodium Chloride 0.9% 50 ML IV SCH (04:04)
[2024-07-04 05:47] LABS: BASOPHILS ABSOLUTE AUTO 0.03 K/uL (0.00-0.20); BASOPHILS PERCENT AUTO 0.2 % (0.0-1.0); HEMATOCRIT 29.3 % (42.0-52.0); HEMOGLOBIN 9.4 g/dL (14.0-18.0); IMMATURE GRAN ABSOLUTE AUTO 0.09 K/uL (0.00-0.05); IMMATURE GRAN PERCENT AUTO 0.5 % (0.0-0.4); LYMPHOCYTES ABSOLUTE AUTO 1.44 K/uL (1.00-4.80); LYMPHOCYTES PERCENT AUTO 7.7 % (24.0-44.0); MEAN CORPUSCULAR HEMOGLOBIN 19.8 pg (28.0-32.0); MEAN CORPUSCULAR HGB CONC 32.1 g/dL (32.0-36.0); MEAN CORPUSCULAR VOLUME 61.7 fL (83.0-99.0); MEAN PLATELET VOLUME 10.3 fL (9.4-12.4); MONOCYTES ABSOLUTE AUTO 1.31 K/uL (0.00-0.80); NEUTROPHILS ABSOLUTE AUTO 15.91 K/uL (1.80-7.70); NEUTROPHILS PERCENT AUTO 84.6 % (41.0-71.0); PLATELET COUNT,PLT 259 K/uL (150-400); RED BLOOD CELL COUNT 4.75 M/uL (4.52-5.90); WHITE BLOOD CELL COUNT,WBC 18.78 K/uL (3.9-11.3)
[2024-07-04 06:13] LABS: ALBUMIN 3.1 g/dL (3.4-5.0); BILIRUBIN TOTAL 1.5 mg/dL (0.2-1.0); CALCIUM 8.1 mg/dL (8.5-10.1); CREATININE 1.3 mg/dL (0.8-1.3); EST CRCL DRUG DOSING (CG) 48.27 mL/min; MAGNESIUM 1.7 mg/dL (1.8-2.4); POTASSIUM,K 4.3 mmol/L (3.5-5.1); PROTEIN TOTAL,TP 6.1 g/dL (6.4-8.2)
[2024-07-04] MEDS ORDERED: propofoL 500 MG/50 ML 50 ML ONE (07:28)
[2024-07-04] MEDS: Famotidine 20 MG Tab PO SCH (09:59)
[2024-07-04] MEDS: Polyethylene Glycol 3350 Powder 17 GM Packet PO SCH (09:59)
[2024-07-04] MEDS: Magnesium Sulf/Wat 2 GM/50 mL 2 GM in Premix Bag 1 BAG IV ONE (10:01)
[2024-07-04] MEDS: Hydrochlorothiazide 12.5 MG Cap PO SCH (10:02)
[2024-07-04] MEDS: Propranolol 60 MG Cap.ER PO SCH (10:02)
[2024-07-04 11:48] VITALS: BP 109/73; PULSE 70
== END 2024-07-04 12:10 | disposition home or self-care (01) ==
LOC: MW.SDS 08:07 → MW.MS 11:07
PROVIDERS: ADMIT Orthopaedic Surgery; ATTEND Orthopaedic Surgery
DX: M16.11 Unilateral primary osteoarthritis, right hip (principal); I10 Essential (primary) hypertension; D56.3 Thalassemia minor; D64.89 Other specified anemias; Z79.899 Other long term (current) drug therapy; Z87.891 Personal history of nicotine dependence
CPT/HCPCS: 27130; 36415; 73501; 80053; 83735; 85014; 85018; 85025; 86850; 86900; 86901; 97116; 97162; A9270; C1713; J0131; J0690; J0735; J1100; J1885; J2371; J2704; J2795; J3475; J3490; J7120; 01214; 99100; 99204; 99213; C1776; J2405